=== PATIENT | female | born 1955 | race Caucasian/White ===

== ENCOUNTER 2016-12-19 12:09 | Outpatient (CLI) | payer MEDICARE, MEDICAID ==
[~2016-12-19] VITALS: Ht 162.6 cm; Wt 75.3 kg
[~2016-12-19 12:09] MED LIST: ACHD5005 PO; ALBU8.5H2 IH; ALPR1T PO; CETI10TA17 PO; HYDR-2890 PO; KCL10CCR PO; LVT.112T PO; MNTL10T PO; MOME13HF IH; OLN5T PO; WARF4TAB PO
[2016-12-19] MEDS ORDERED: TRIAMCINOLONE ACET (KENALOG-40) 40 MG/ML 1 ML VIAL ONE (12:12)
[2016-12-19] MEDS ORDERED: BUPIVACAINE 0.25% 30 ML (SENSORCAINE) VIAL ONE (12:12)
--- OUTSIDE RECORDS SUMMARY | 2016-12-19 12:14 | XMS REPORT | Continuity of Care Document ---
Author Author [facility] Organization [facility] Address Unknown Phone Unavailable Care Team Providers Care Hydraulic Elevator Constructor Name Role Phone Manny Menendez PCP [phone] Source Comments Some departments are not documenting in the electronic medical record. If you do not see the information that you expected, contact Release of Information in the Health Information Management department at [phone] for further assistance in locating additional records.[facility] Active Allergies and Adverse Reactions Allergen Noted Date Severity Reactions Comments Iv Contrast Dye, Iodine 02/02/2016 Medium SHORTNESS OF BREATH Containing Sulfa (Sulfonamide 02/02/2016 Medium SHORTNESS OF BREATH Antibiotics) Toradol 02/02/2016 Medium HIVES Ultram 02/02/2016 Medium HIVES Current Medications Prescription Sig. Disp. Refills Start End Date Status Date varenicline (CHANTIX) 0.5 Take 0.5 mg by mouth Active mg tab daily. HYDROcodone bitartrate 10 Take by mouth Active mg CR12 CETIRIZINE HCL (ZYRTEC Take by mouth. Active PO) apixaban (ELIQUIS) 5 mg Take 5 mg by mouth twice Active tab tablet daily. ALPRAZolam (XANAX) 1 mg Take 1 mg by mouth at Active tablet bedtime as needed. GUAIFENESIN (MUCINEX PO) Take by mouth. Active albuterol (VENTOLIN HFA, Inhale 2 Puffs by mouth Active PROAIR HFA) 90 every 6 hours as needed mcg/actuation inhaler for Wheezing. tiotropium (SPIRIVA) 18 Inhale 18 mcg by mouth Active mcg capsule for inhaler daily. cefdinir (OMNICEF) 300 mg Take 300 mg by mouth Active capsule every 12 hours. carvedilol (COREG) 3.125 Take 3.125 mg by mouth Active mg tablet twice daily with meals. pregabalin (LYRICA) 25 mg Take 25 mg by mouth three Active capsule times daily. levothyroxine (SYNTHROID) Take 112 mcg by mouth Active 112 mcg tablet daily. linagliptin 5 mg tab Take 5 mg by mouth daily. Active metFORMIN (GLUCOPHAGE) Take 500 mg by mouth Active 500 mg tablet twice daily with meals. levETIRAcetam (KEPPRA) Take 500 mg by mouth Active 500 mg tablet twice daily. furosemide (LASIX) 20 mg Take 20 mg by mouth Active tablet daily. CALCIUM CARBONATE Take by mouth. Active (CALCIUM 500 PO) simvastatin (ZOCOR) 20 mg Take 20 mg by mouth at Active tablet bedtime daily. budesonide/formoterol Inhale 2 Puffs by mouth Active (SYMBICORT) 160/4.5 mcg twice daily. HFAA inhalation cyclobenzaprine Take 10 mg by mouth three Active (FLEXERIL) 10 mg tablet times daily as needed for Muscle Cramps. MIRTAZAPINE (REMERON PO) Take by mouth. Active prednisoLONE acetate Insert or Apply 1 Drop to 5 mL 1 03/28/20 Active (PRED FORTE) 1 % right eye as directed 16 ophthalmic suspension four times daily. Active Problems Problem Noted Date Glaucoma of both eyes 02/02/2016 Last Assessment & Plan: Using travatan OU, IOP okay Follow up with Dr. 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 Also associated with VMT. Discussed releasing VMT, possible further loss of vision without treatment Patient would like to proceed with surgery Will obtain FA first, transit OD. Vitreomacular traction syndrome of right eye 02/02/2016 Last Assessment & Plan: pom 1 looks good stop all meds Social History Tobacco Use Types Packs/Day Years Used Date Current Every Day Smoker Cigarettes 1 46 Smokeless Tobacco: Chew Current User Alcohol Use Drinks/Week oz/Week Comments No 0 Standard 0.0 drinks or equivalent Last Filed Vital Signs Vital Sign Reading Time Taken Blood Pressure 104/63 04/22/2016 10:04 AM CDT Pulse 105 04/22/2016 10:04 AM CDT Temperature 36.5 C (97.7 F) 03/14/2016 3:19 PM CDT Respiratory Rate - - Height 1.626 m (5' 4") 04/22/2016 10:04 AM CDT Weight 72.576 kg (160 lb) 04/22/2016 10:04 AM CDT Body Mass Index 27.45 04/22/2016 10:04 AM CDT Oxygen Saturation 89% 03/14/2016 4:00 PM CDT Plan of Care Health Maintenance Due Date Last Done Comments Physical (Comprehensive) 1962 Exam Pertussis Vaccine 1966 Tetanus Vaccine 1972 Cervical Cancer Screening 1976 Breast Cancer Screening 1995 Colorectal Cancer 2005 Screening Shingles Vaccine 2015 Influenza Vaccine 07/28/2016 Results from Last 3 Months Not on file
[2016-12-19 12:33] VITALS: BP 95/68
[2016-12-19 13:07] VITALS: BP 84/55
--- NOTE | 2016-12-19 14:44 | Pain Medicine-Procedure ---
Procedure Pre-Op/Post-Op Diagnosis Diagnosis: disc disorder with radiculopathy, lumbar Indications for Operation Low back pain Attending Surgeon Sharan Procedure Date of Service: Dec 19, 2016 PROCEDURE: Caudal Epidural Steroid Injection with catheter under Flouroscopic Guidance PROCEDURE NOTE: After obtaining written informed consent patient was taken to the procedure room. Vital signs were monitored through out the procedure. A time out was performed. Patient held her eliquis for 72 hours prior to procedure. The patient was placed in the prone position on fluoroscopy table. The lower back above the caudal space was prepped with chloraprep and draped in the usual sterile fashion. The skin over the sacral hiatus was identified under fluoroscopic guidance and infiltrated with 1% lidocaine for local anesthesia via 25 gauge needle. An 17-gauge epimed needle was used to access the epidural space under fluoroscopic guidance and was then advanced into the epidural space under fluoroscopic guidance in the AP view. The epimed catheter was then advanced under flourospopic guidance to the L5-S1 interspace. There was no paresthesia with catheter placement. After negative aspiration 1 cc of the contrast dye was injected through the needle with good spread of the medication in the epidural space at the appropriate levels. Again, after negative aspiration, 80 mg of kenalog with 2 cc of 0.25% marcaine and 2 mL's of preservative free normal saline was injected. There was no evidence of CSF, paresthesia or heme during the procedure. The catheter and needle were withdrawn as a unit and the tip was noted to be intact upon removal. Skin was cleaned and a sterile dressing was applied. Following the procedure the patient's vital signs were stable. The patient was discharged home after a brief period of observation with no new neuologic deficits. Complications None SUZY LEUNG MD Dec 19, 2016 2:43 pm
== END 2016-12-19 13:08 | disposition home or self-care (01) ==
LOC: CARD 12:09
PROVIDERS: ATTEND Pain Medicine Pain Medicine
DX: M51.16 Intervertebral disc disorders with radiculopathy, lumbar region (principal); G89.4 Chronic pain syndrome; E11.9 Type 2 diabetes mellitus without complications; Z79.01 Long term (current) use of anticoagulants; Z79.899 Other long term (current) drug therapy
CPT/HCPCS: 62323; 82962

== ENCOUNTER 2017-03-06 12:32 | Outpatient (CLI) | payer MEDICARE, MEDICAID ==
[~2017-03-06] VITALS: Ht 162.6 cm; Wt 75.3 kg
[2017-03-06] MEDS ORDERED: TRIAMCINOLONE ACET (KENALOG-40) 40 MG/ML 1 ML VIAL ONE (12:37)
[2017-03-06] MEDS ORDERED: BUPIVACAINE 0.25% 30 ML (SENSORCAINE) VIAL ONE (12:37)
[2017-03-06 12:42] VITALS: BP 182/94
[2017-03-06 13:16] VITALS: BP 177/104
--- NOTE | 2017-03-06 14:30 | Pain Medicine-Procedure ---
Procedure Pre-Op/Post-Op Diagnosis Diagnosis: disc disorder with radiculopathy, lumbar Indications for Operation Low back pain Attending Surgeon Sharan Procedure Date of Service: Mar 06, 2017 PROCEDURE: Caudal Epidural Steroid Injection with catheter under Flouroscopic Guidance PROCEDURE NOTE: After obtaining written informed consent patient was taken to the procedure room. Vital signs were monitored through out the procedure. Patient held her eliquis for 72 hours prior to procedure. A time out was performed. The patient was placed in the prone position on fluoroscopy table. The lower back above the caudal space was prepped with chloraprep and draped in the usual sterile fashion. The skin over the sacral hiatus was identified under fluoroscopic guidance and infiltrated with 1% lidocaine for local anesthesia via 25 gauge needle. An 17-gauge epimed needle was used to access the epidural space under fluoroscopic guidance and was then advanced into the epidural space under fluoroscopic guidance in the AP view. The epimed catheter was then advanced under flourospopic guidance to the L5-S1 interspace. There was no paresthesia with catheter placement. No contrast dye was utilized secondary to history of contrast dye allergy, after negative aspiration, 80 mg of kenalog with 2 cc of 0.25% marcaine and 2 mL's of preservative free normal saline was injected. There was no evidence of CSF, paresthesia or heme during the procedure. The catheter and needle were withdrawn as a unit and the tip was noted to be intact upon removal. Skin was cleaned and a sterile dressing was applied. Following the procedure the patient's vital signs were stable. The patient was discharged home after a brief period of observation with no new neuologic deficits. Complications None SUZY LEUNG MD Mar 06, 2017 2:30 pm
== END 2017-03-06 13:18 | disposition home or self-care (01) ==
LOC: CARD 12:32
PROVIDERS: ATTEND Pain Medicine Pain Medicine
DX: M51.16 Intervertebral disc disorders with radiculopathy, lumbar region (principal); G89.4 Chronic pain syndrome; Z79.899 Other long term (current) drug therapy
CPT/HCPCS: 62323

== ENCOUNTER → 2017-08-03 | Outpatient (CLI) | payer MEDICARE, MEDICAID ==
[~2017-08-03] MED LIST changes: +methylPREDNISolone 80 MG/ML (DEPO MEDROL) VIAL ONE
[2017-08-03 14:33] VITALS: BP 156/77
== END ==
LOC: CARD 13:57
PROVIDERS: ATTEND Pain Medicine Interventional Pain Medicine
DX: M54.16 Radiculopathy, lumbar region (principal)

== ENCOUNTER 2017-11-23 11:55 | Outpatient (CLI) | payer MEDICARE, MEDICAID ==
[~2017-11-23] VITALS: Ht 162.6 cm; Wt 75.3 kg
[~2017-11-23 11:55] MED LIST changes: -methylPREDNISolone 80 MG/ML (DEPO MEDROL) VIAL ONE
[2017-11-23 12:16] VITALS: BP 186/92
[2017-11-23] MEDS ORDERED: methylPREDNISolone 80 MG/ML (DEPO MEDROL) VIAL ONE (12:20)
[2017-11-23 13:32] VITALS: BP 139/76
--- NOTE | 2017-11-25 03:45 | OPERATIVE REPORT ---
DATE OF SERVICE: 11/23/2017 DIAGNOSIS: Lumbar radiculopathy. PROCEDURE: Fluoroscopic guided interlaminar epidural steroid injection. PROCEDURE IN DETAIL: After obtaining informed consent from the patient, the patient's chart was reviewed. The patient was then brought to the procedure room and placed in the prone position. A timeout was performed. The back was prepped with antiseptic solution and under fluoro guidance, the patient's lumbar spine was identified at the level of L5-S1. The L5-S1 vertebra was identified with fluoro guidance and approximately 2 mL of 1.5% lidocaine solution was used to anesthetize the skin directly down to the pedicle of the L5-S1 and under fluoroscopic guidance, the tract was anesthetized up to the interlaminar space and the ligamentum flavum. This needle was withdrawn. Then, a 20-gauge 3.5 inch Tuohy needle was then directed following the same tract that was anesthetized with the spinal needle. Using loss of resistance, the epidural space was identified and then the syringe was switched for contrast solution which was injected, approximately 1 mL. After secondary confirmation of epidural access, another syringe was placed and 80 mg of Depo-Medrol was injected. The Tuohy needle was then flushed out with approximately 2 mL of the normal saline used from the loss of resistance syringe. Band-Aids were applied to all the procedure sites. The patient tolerated the procedure well and was taken to the recovery room in stable condition. COMPLICATIONS: None. Job ID: [id number] DocumentID: [id number] Dictated Date: 11/24/2017 19:00:36 Edm Operator Date: 11/25/2017 03:45:03 Dictated By: DIVINA HUDDLESTON DO
== END 2017-11-23 13:33 | disposition home or self-care (01) ==
LOC: CARD 11:55
PROVIDERS: ATTEND Pain Medicine Interventional Pain Medicine
DX: M54.16 Radiculopathy, lumbar region (principal)
CPT/HCPCS: 62323